=== PATIENT | female | born 1940 | race Caucasian/White ===

== ENCOUNTER 2020-12-08 13:19 | Outpatient (CLI) | payer MEDICARE, SELFPAY | END 2020-12-08 13:20 | disposition home or self-care (01) | LOC: ANHCOVIDVC 13:19 | PROVIDERS: PCP Family Medicine | DX: Z23 Encounter for immunization (principal) | CPT/HCPCS: 0001A; 91300 ==

== ENCOUNTER 2020-12-29 13:20 | Outpatient (CLI) | payer MEDICARE, SELFPAY | END 2020-12-29 13:21 | disposition home or self-care (01) | LOC: ANHCOVIDVC 13:20 | PROVIDERS: PCP Family Medicine | DX: Z23 Encounter for immunization (principal) | CPT/HCPCS: 0002A; 91300 ==